=== PATIENT | male | born 1965 | race Asian ===

== ENCOUNTER 2022-02-09 12:24 | Observation (INO) | payer OTHER ==
[~2022-02-09] VITALS: Ht 170.2 cm; Wt 78.5 kg
[2022-02-09 13:53] LABS: PLATELET COUNT 186 K/uL (142-355)
[2022-02-09 14:12] VITALS: BP 147/83; TEMP 98.2; Ht 170.2 cm; Wt 78.5 kg
[2022-02-09 14:18] LABS: PARTIAL THROMBOPLASTIN TIME 24.1 SECONDS (24.5-33.6)
[2022-02-09 14:27] LABS: POTASSIUM 3.6 mmol/L (3.6-5.2)
[2022-02-09 16:00] VITALS: BP 115/64; TEMP 97.8
[2022-02-09 20:00] VITALS: BP 138/96; TEMP 98.1
[2022-02-10] VITALS: BP 101/60; TEMP 98
[2022-02-10 04:00] VITALS: BP 114/75; TEMP 98.3
[2022-02-10 05:50] LABS: PLATELET COUNT 165 K/uL (142-355)
[2022-02-10 06:00] LABS: POTASSIUM 3.7 mmol/L (3.6-5.2)
[2022-02-10 08:00] VITALS: BP 102/65; TEMP 97.8
[2022-02-10 12:00] VITALS: BP 107/63; TEMP 98.1
== END 2022-02-10 15:40 | disposition home or self-care (01) ==
LOC: MED/SURG 12:24
PROVIDERS: ADMIT Family Medicine; ATTEND Family Medicine
DX: R07.89 Other chest pain (principal); I10 Essential (primary) hypertension; I25.2 Old myocardial infarction; R00.1 Bradycardia, unspecified; I51.7 Cardiomegaly
CPT/HCPCS: 36415; 80053; 80061; 82550; 83735; 84100; 84484; 85027; 85610; 85730; 87635; 93005; 96372; 99220; G0378; G0379; J1650; U0003

== ENCOUNTER 2022-08-02 12:19 | Outpatient (CLI) | payer OTHER | END 2022-08-02 19:39 | disposition home or self-care (01) | LOC: RAD 12:19 | PROVIDERS: ATTEND Nurse Practitioner Family | DX: M54.12 Radiculopathy, cervical region (principal) ==